=== PATIENT | female | born 1975 | race American Indian/Alaskan Native ===

== ENCOUNTER 2019-03-12 19:31 | Emergency (ER) | payer OTHER ==
[2019-03-12 20:21] VITALS: BP 141/76
--- NOTE | 2019-03-12 20:22 | Emergency Department Report ---
Chief Complaint: Abdominal Pain Stated Complaint: ABDOMINAL PAIN/ Time Seen by Provider: 03/12/19 20:17 - HPI History of Present Illness: This is a 43 y.o. F. that presents to the ER with abdominal pain and discharge. Positive home test yesterday. Denies vaginal bleeding, dysuria. Admits urinary frequency, urgency, and vaginal discharge. - Exam Vital Signs: Vital Signs 03/12/19 20:18 Temperature 98 F Pulse Rate 96 H Respiratory 18 Rate Blood Pressure 141/76 O2 Sat by Pulse 98 Oximetry MSE screening note: Focused history and physical exam performed. Due to findings the following was ordered: This initial assessment/diagnostic orders/clinical plan/treatment(s) is/are subject to change based on patient's health status, clinical progression and re-assessment by fellow clinical providers in the ED. Further treatment and workup at subsequent clinical providers discretion. Patient/guardians urged not to elope from the ED as their condition may be serious if not clinically assessed and managed. Initial orders include: 1- Patient sent to [facility] for further evaluation and treatment 2- labs, OB US ED Disposition for MSE Condition: Stable Instructions: Abdominal Pain (ED)
[2019-03-12 21:12] LABS: Basophils % (Auto) 0.4 % (0.0-1.8); Eosinophils # (Auto) 0.1 K/mm3 (0.0-0.4); Eosinophils % (Auto) 0.7 % (0.0-4.3); Hematocrit 35.3 % (30.3-42.9); Hemoglobin 11.4 gm/dl (10.1-14.3); Lymphocytes # (Auto) 2.6 K/mm3 (1.2-5.4); Lymphocytes % (Auto) 25.4 % (13.4-35.0); Mean Corpuscular HGB Conc 32 % (30-34); Mean Corpuscular Volume 78 fl (79-97); Monocytes # (Auto) 0.8 K/mm3 (0.0-0.8); Monocytes % (Auto) 7.6 % (0.0-7.3); Platelet Count 309 K/mm3 (140-440); Red Blood Count 4.52 M/mm3 (3.65-5.03); Red Cell Distribution Width 16.9 % (13.2-15.2)
[2019-03-12 21:25] LABS: Alanine Aminotransferase 30 units/L (7-56); Albumin 3.8 g/dL (3.9-5); BUN/Creatinine Ratio 17; Blood Urea Nitrogen 10 mg/dL (7-17); Calcium 9.8 mg/dL (8.4-10.2); Hemolysis Index 1
[2019-03-12 22:00] LABS: Bacteria,Urine 1+ /HPF (Negative); Bilirubin,Urine NEG (Negative); Blood,Urine SM (Negative); Color,Urine Yellow (Yellow); Mucus,Urine FEW /HPF; Protein,Urine <15 mg/dL mg/dL (Negative); Urobilinogen,Urine < 2.0 mg/dL (<2.0)
--- NOTE | 2019-03-13 00:37 | Ultrasound Report ---
PROCEDURE: US OB TRANSVAGINAL TECHNIQUE: Transvaginal imaging was obtained of the pelvis with Doppler interrogation of the uterus and adnexa. HISTORY: abdominal pain, COMPARISONS: None FINDINGS: The uterus is anteverted measuring 10.4 x 6.3 x 7.3 cm. Within the uterus is a well formed gestationa l sac which contains a yolk sac and pole. The pole length is 3.1 mm corresponding to a 5 week 6 day IUP. The heart rate is 119 bpm. There is no evidence of subchorionic hemorrhage. Sesar e fluid is not seen. Along the right wall of the uterus is a small fibroid measuring 1.5 cm in diamet er. The right ovary is normal size contour blood flow and echotexture measuring 2.5 x 1.6 x 2.2 cm. The left ovary is normal size contour blood flow and echotexture measuring 3.4 x 2.2 x 2.6 cm. IMPRESSION: Single viable IUP, 5 weeks 6 days. The heart rate is 119 BPM.. 1.5 cm fibroid in the right side of the uterus. Normal-appearing ovaries. This document is electronically signed by Ender Walker MD., Mar 13 2019 12:35:22 AM ET
--- NOTE | 2019-03-13 00:38 | Ultrasound Report ---
PROCEDURE: US OB <= 14 WEEKS FETUS TECHNIQUE: Transabdominal imaging was obtained of the pelvis. HISTORY: abdominal pain, COMPARISONS: None FINDINGS: The uterus is anteverted measuring 10.4 x 6.3 x 7.3 cm. Within the uterus is a well formed gestationa l sac which contains a pole and yolk sac. The crown-rump length is 3.1 mm corresponding to a 5 week 6 day . The heart rate is 119 BPM. There is no evidence of subchorionic hemorrhag e. Free fluid is not seen. The ovaries are appropriate in size contour blood flow and echotexture. The right ovary measures 2.5 x 1.6 x 2.2 cm. The left ovary measures 3.4 x 2.2 x 2.6 cm. IMPRESSION: Single viable IUP, 5 weeks 6 days. The heart rate is 119 BPM.. This document is electronically signed by Ender Walker MD., Mar 13 2019 12:36:43 AM ET
--- NOTE | 2019-03-13 01:18 | Emergency Department Report ---
ED Abdominal Pain HPI - General Chief Complaint: Abdominal Pain Stated Complaint: ABDOMINAL PAIN/ Time Seen by Provider: 03/12/19 20:17 Source: patient Mode of arrival: Ambulatory Limitations: No Limitations - History of Present Illness Initial Comments: pt is a 43 y/o aaf G1, P1, A0 who presents for urinary frequency and urgency x 4 days with mild abd cramping, pt denies fever or chills no intermittent n/v , pt states positive home tests. MD Complaint: abdominal pain Onset/Timin -: Gradual (-year-old male), days(s) (Impression third a lot better is m ultitrauma T is understandable) Location: suprapubic (5) Radiation: suprapubic Migration to: no migration Severity: moderate Severity scale (0 -10): 4 (name) Quality: cramping (metanephrine I Walker A) Consistency: constant (She Wanted Can Now), intermittent Improves With: nothing Worsens With: other (Gen. for 2 more days) Associated Symptoms: nausea, vomiting (name), dysuria ( W,) Treatments Prior to Arrival: NSAIDs - Related Data LMP Date: 01/21/19 Previous Rx's Medication Instructions Recorded Last Taken Type Acetaminophen [Acetaminophen TAB] 650 mg PO Q6HR PRN #30 tablet 03/13/19 Unknown Rx Nitrofurantoin [place]/M-Cryst 100 mg PO BID 7 Days #14 capsule 03/13/19 Unknown Rx [Macrobid CAP] Ondansetron [Zofran Odt] 4 mg PO Q8HR PRN #12 tab.rapdis 03/13/19 Unknown Rx Allergies Allergy/AdvReac Type Severity Reaction Status Date / Time No Known Allergies Allergy Verified 03/12/19 19:39 ED Review of Systems ROS: Stated complaint: ABDOMINAL PAIN/ Other details as noted in HPI Constitutional: denies: chills, fever Eyes: denies: eye pain, eye discharge, vision change ENT: denies: ear pain, throat pain Respiratory: denies: cough, shortness of breath, wheezing Cardiovascular: denies: chest pain, palpitations Endocrine: no symptoms reported Gastrointestinal: abdominal pain (cramping the lateralWAS ON ambulatory.). denies: nausea, vomiting (mass is), diarrhea Genitourinary: urgency, dysuria, frequency. denies: hematuria, discharge, dyspareunia Musculoskeletal: denies: back pain, joint swelling, arthralgia Skin: denies: rash, lesions Neurological: as per HPI. denies: headache, weakness, paresthesias Psychiatric: denies: anxiety, depression Hematological/Lymphatic: as per HPI (visual). denies: easy bleeding, easy bruising ED Past Medical Hx - Past Medical History Previous Medical History?: Yes Hx Asthma: Yes - Surgical History Past Surgical History?: No Additional Surgical History: sx R hand. sx R elbow - Social History Smoking Status: Never Smoker Substance Use Type: None - Medications Home Medications: Home Medications Medication Instructions Recorded Confirmed Last Taken Type Acetaminophen [Acetaminophen TAB] 650 mg PO Q6HR PRN #30 tablet 03/13/19 Unknown Rx Nitrofurantoin [place]/M-Cryst 100 mg PO BID 7 Days #14 capsule 03/13/19 Unknown Rx [Macrobid CAP] Ondansetron [Zofran Odt] 4 mg PO Q8HR PRN #12 tab.rapdis 03/13/19 Unknown Rx ED Physical Exam - General Limitations: No Limitations General appearance: alert, in no apparent distress - Head Head exam: Present: atraumatic, normocephalic - Eye Eye exam: Present: normal appearance, PERRL, EOMI - ENT ENT exam: Present: mucous membranes moist - Neck Neck exam: Present: normal inspection, full ROM (we are regular in the). Absent: tenderness - Respiratory Respiratory exam: Present: normal lung sounds bilaterally. Absent: respiratory distress, wheezes, stridor, chest wall tenderness - Cardiovascular Cardiovascular Exam: Present: regular rate, normal rhythm, normal heart sounds (8). Absent: systolic murmur, diastolic murmur, rubs, gallop - GI/Abdominal GI/Abdominal exam: Present: soft ( his oral fluids and off on the same endocrine he got to go. Call floor she check K and I around with will resume last Thersa a running for when necessary has ear is is is, however this), distended, t enderness, guarding, rebound, rigid, normal bowel sounds. Absent: bruit, hernia - Rectal Rectal exam: Present: deferred - External exam: Present: other (exam deferred by patient ) - Extremities Exam Extremities exam: Present: normal inspection - Back Exam Back exam: Present: normal inspection, full ROM. Absent: tenderness, CVA tenderness (R), CVA tenderness (L), muscle spasm, paraspinal tenderness, vertebral tenderness, rash noted - Neurological Exam Neurological exam: Present: alert, oriented X3, CN II-XII intact, normal gait, reflexes normal - Psychiatric Psychiatric exam: Present: normal affect, normal mood - Skin Skin exam: Present: warm, dry, intact, normal color. Absent: rash ED Course Vital Signs 03/12/19 03/12/19 19:40 20:18 Temperature 98.0 F 98 F Pulse Rate 93 H 96 H Respiratory 18 18 Rate Blood Pressure 141/76 141/76 O2 Sat by Pulse 98 98 Oximetry ED Medical Decision Making - Lab Data Result diagrams: 03/12/19 20:47 03/12/19 20:47 Labs 03/12/19 03/12/19 03/12/19 20:26 20:47 20:47 WBC 10.1 RBC 4.52 Hgb 11.4 Hct 35.3 MCV 78 L MCH 25 L MCHC 32 RDW 16.9 H Plt Count 309 Lymph % (Auto) 25.4 [place] % (Auto) 7.6 H Eos % (Auto) 0.7 Baso % (Auto) 0.4 Lymph # 2.6 [place] # 0.8 Eos # 0.1 Baso # 0.0 Seg Neutrophils % 65.9 Seg Neutrophils # 6.6 Sodium 135 L Potassium 4.1 Chloride 100.3 Carbon Dioxide 24 Anion Gap 15 BUN 10 Creatinine 0.6 L Estimated GFR > 60 BUN/Creatinine Ratio 17 Glucose 134 H Calcium 9.8 Total Bilirubin 0.30 AST 21 ALT 30 Alkaline Phosphatase 86 Total Protein 7.5 Albumin 3.8 L Albumin/Globulin Ratio 1.0 HCG, Qual HCG, Quant Urine Color Yellow Urine Turbidity Slightly-cloudy Urine pH 5.0 Ur Specific [place] 1.018 Urine Protein <15 mg/dl Urine Glucose (UA) Neg Urine Ketones Neg Urine Blood Sm Urine Nitrite Neg Urine Bilirubin Neg Urine Urobilinogen < 2.0 Ur Leukocyte Esterase Neg Urine WBC (Auto) 2.0 Urine RBC (Auto) 1.0 U Epithel Cells (Auto) 3.0 Urine Bacteria (Auto) 1+ Urine Mucus Few 03/12/19 03/12/19 20:47 20:47 WBC RBC Hgb Hct MCV MCH MCHC RDW Plt Count Lymph % (Auto) [place] % (Auto) Eos % (Auto) Baso % (Auto) Lymph # [place] # Eos # Baso # Seg Neutrophils % Seg Neutrophils # Sodium Potassium Chloride Carbon Dioxide Anion Gap BUN Creatinine Estimated GFR BUN/Creatinine Ratio Glucose Calcium Total Bilirubin AST ALT Alkaline Phosphatase Total Protein Albumin Albumin/Globulin Ratio HCG, Qual Positive HCG, Quant 34925 H Urine Color Urine Turbidity Urine pH Ur Specific [place] Urine Protein Urine Glucose (UA) Urine Ketones Urine Blood Urine Nitrite Urine Bilirubin Urine Urobilinogen Ur Leukocyte Esterase Urine WBC (Auto) Urine RBC (Auto) U Epithel Cells (Auto) Urine Bacteria (Auto) Urine Mucus - Radiology Data Radiology results: report reviewed, image reviewed PROCEDURE: US OB TRANSVAGINAL TECHNIQUE: Transvaginal imaging was obtained of the pelvis with Doppler interrogation of the uterus and adnexa. HISTORY: abdominal pain, COMPARISONS: None FINDINGS: The uterus is anteverted measuring 10.4 x 6.3 x 7.3 cm. Within the uterus is a well formed gestational sac which contains a yolk sac and pole. The pole length is 3.1 mm corresponding to a 5 week 6 day IUP. The heart rate is 119 bpm. There is no evidence of subchorionic hemorrhage. Free fluid is not seen. Along the right wall of the uterus is a small fibroid measuring 1.5 cm in diameter. The right ovary is normal size contour blood flow and echotexture measuring 2.5 x 1.6 x 2.2 cm. The left ovary is normal size contour blood flow and echotexture measuring 3.4 x 2.2 x 2.6 cm. IMPRESSION: Single viable IUP, 5 weeks 6 days. The heart rate is 119 BPM.. 1.5 cm fibroid in the right side of the uterus. Normal-appearing ovaries. This document is electronically signed by Ender Walker MD., Mar 13 2019 12:35: 22 AM ET Transcribed By: RB Dictated By: ENDER WALKER MD Electronically Authenticated By: ENDER WALKER MD Signed Date/Time: 03/13/19 0037 DD/ 51 TD/TT: 03/12/19 919 PROCEDURE: US OB TRANSVAGINAL TECHNIQUE: Transvaginal imaging was obtained of the pelvis with Doppler interrogation of the uterus and adnexa. HISTORY: abdominal pain, COMPARISONS: None FINDINGS: The uterus is anteverted measuring 10.4 x 6.3 x 7.3 cm. Within the uterus is a well formed gestational sac which contains a yolk sac and pole. The pole length is 3.1 mm corresponding to a 5 week 6 day IUP. The heart rate is 119 bpm. There is no evidence of subchorionic hemorrhage. Free fluid is not seen. Along the right wall of the uterus is a small fibroid measuring 1.5 cm in diameter. The right ovary is normal size contour blood flow and echotexture measuring 2.5 x 1.6 x 2.2 cm. The left ovary is normal size contour blood flow and echotexture measuring 3.4 x 2.2 x 2.6 cm. IMPRESSION: Single viable IUP, 5 weeks 6 days. The heart rate is 119 BPM.. 1.5 cm fibroid in the right side of the uterus. Normal-appearing ovaries. This document is electronically signed by Ender Walker MD., Mar 13 2019 12:35:22 AM ET Transcribed By: RB Dictated By: ENDER WALKER MD Electronically Authenticated By: ENDER WALKER MD Signed Date/Time: 03/13/19 0037 DD/ 51 TD/TT: 03/12/19 235 - Medical Decision Making US OB: Single IUP 5 weeks and 6 days heart rate is 119 bpm, ua: normal however pt complaint for urinary frequency urgency and dysuria , there is no vaginal bleeding,will tx for dysuria with macrobid, zofran, tylenol, follow with obgyn in 1-2 days, pt and verbalized agreement and understanding of same. Critical care attestation.: If time is entered above; I have spent that time in minutes in the direct care of this critically ill patient, excluding procedure time. ED Disposition Clinical Impression: Dysuria Qualifiers: Weeks of gestation: less than 8 weeks Qualified Code(s): Z3A.01 - Less than 8 weeks gestation of Disposition: DC-01 TO HOME OR SELFCARE Is pt being admited?: No Does the pt Need Aspirin: No Condition: Stable Instructions: Abdominal Pain (ED), Dysuria (ED) Prescriptions: Acetaminophen [Acetaminophen TAB] 650 mg PO Q6HR PRN #30 tablet PRN Reason: Pain Nitrofurantoin [place]/M-Cryst [Macrobid CAP] 100 mg PO BID 7 Days #14 capsule Ondansetron [Zofran Odt] 4 mg PO Q8HR PRN #12 tab.rapdis PRN Reason: Nausea And Vomiting Referrals: DAVID PEÑA MD [Staff Physician] - 3-5 Days Forms: Work/School Release Form(ED) Time of Disposition: 01:35
== END 2019-03-13 01:45 | disposition home or self-care (01) ==
LOC: ED 19:31
DX: O23.41 Unspecified infection of urinary tract in pregnancy, first trimester (principal); R30.0 Dysuria; O99.511 Diseases of the respiratory system complicating pregnancy, first trimester; J45.909 Unspecified asthma, uncomplicated; Z3A.01 Less than 8 weeks gestation of pregnancy
CPT/HCPCS: 36415; 76801; 76817; 80053; 81001; 84702; 84703; 85025; 99284

== ENCOUNTER 2019-08-17 09:14 | Outpatient (CLI) | payer OTHER, MEDICAID ==
[2019-08-17 09:34] VITALS: BP 124/68
[2019-08-17 10:44] LABS: Bacteria,Urine 1+ /HPF (Negative); Bilirubin,Urine NEG (Negative); Blood,Urine NEG (Negative); Color,Urine Yellow (Yellow); Mucus,Urine FEW /HPF; Protein,Urine <15 mg/dL mg/dL (Negative); Urobilinogen,Urine < 2.0 mg/dL (<2.0)
[2019-08-17] MEDS ORDERED: LACTATED RINGERS 500 ML IV ONE (11:07)
[2019-08-17] MEDS ORDERED: ACETAMINOPHEN 325 MG TAB PO ONE (11:09)
[2019-08-17 14:06] LABS: Hematocrit 31.4 % (30.3-42.9); Hemoglobin 9.9 gm/dl (10.1-14.3); Mean Corpuscular HGB Conc 32 % (30-34); Mean Corpuscular Volume 81 fl (79-97); Platelet Count 197 K/mm3 (140-440); Red Blood Count 3.86 M/mm3 (3.65-5.03); Red Cell Distribution Width 19.4 % (13.2-15.2)
[2019-08-17] MEDS ORDERED: LACTATED RINGERS 1,000 ML IV ONE (14:34)
== END 2019-08-17 14:35 | disposition home or self-care (01) ==
LOC: TRG 09:14 → MERGE 09:14 → TRG 09:18
PROVIDERS: ATTEND Obstetrics & Gynecology
DX: O26.893 Other specified pregnancy related conditions, third trimester (principal); R10.9 Unspecified abdominal pain; R51 Headache; M54.9 Dorsalgia, unspecified; Z3A.29 29 weeks gestation of pregnancy
CPT/HCPCS: 36415; 59025; 81001; 82962; 85027; 96360; J7120

== ENCOUNTER 2019-09-20 12:39 | Outpatient (CLI) | payer OTHER, MEDICAID ==
[2019-09-20] MEDS ORDERED: LACTATED RINGERS 500 ML IV ONE (13:19)
[2019-09-20 13:22] VITALS: BP 114/65
[2019-09-20 13:49] LABS: Bacteria,Urine 2+ /HPF (Negative); Bilirubin,Urine NEG (Negative); Blood,Urine NEG (Negative); Color,Urine Yellow (Yellow); Mucus,Urine 2+ /HPF; Urobilinogen,Urine < 2.0 mg/dL (<2.0)
== END 2019-09-20 15:55 | disposition home or self-care (01) ==
LOC: TRG 12:39
PROVIDERS: ATTEND Obstetrics & Gynecology
DX: O47.03 False labor before 37 completed weeks of gestation, third trimester (principal); Z3A.34 34 weeks gestation of pregnancy
CPT/HCPCS: 59025; 81001

== ENCOUNTER 2019-09-28 01:45 | Outpatient (CLI) | payer OTHER, MEDICAID ==
[2019-09-28 04:16] LABS: Bacteria,Urine 1+ /HPF (Negative); Bilirubin,Urine NEG (Negative); Blood,Urine NEG (Negative); Color,Urine Straw (Yellow); Protein,Urine <15 mg/dL mg/dL (Negative); RBC,Urine < 1.0 /HPF (0.0-6.0); Urobilinogen,Urine < 2.0 mg/dL (<2.0); WBC,Urine < 1.0 /HPF (0.0-6.0)
--- NOTE | 2019-09-28 04:34 | Ultrasound Report ---
Limited OB ultrasound for biophysical profile FINDINGS: breathing, movement and posture/tone all score 2/2. Amniotic fluid index is 13.5 cm a lso with a score of 2 for a total profile of 8/8. Signer Name: Sabas Faith MD Signed: 09/28/2019 4:29 AM Workstation Name: [id number]
== END 2019-09-28 04:31 | disposition home or self-care (01) ==
LOC: TRG 01:45
PROVIDERS: ATTEND Obstetrics & Gynecology
DX: O36.8130 Decreased fetal movements, third trimester, not applicable or unspecified (principal); O09.513 Supervision of elderly primigravida, third trimester; Z3A.36 36 weeks gestation of pregnancy
CPT/HCPCS: 59025; 76819; 81001

== ENCOUNTER 2019-10-03 21:57 | Observation (INO) | payer OTHER, MEDICAID ==
[2019-10-03] MEDS ORDERED: LACTATED RINGERS 500 ML IV ONE (22:05)
[2019-10-03] MEDS ORDERED: ACETAMINOPHEN 500 MG TAB PO PRN (22:57)
[2019-10-03] MEDS ORDERED: ZOLPIDEM 5 MG TAB PO PRN (22:58)
[2019-10-04 00:08] LABS: Bilirubin,Urine NEG (Negative); Blood,Urine NEG (Negative); Color,Urine Amber (Yellow); Mucus,Urine 3+ /HPF
[2019-10-04 00:15] LABS: Amphetamine Screen,Urine PRESUMPTIVE NEGATIVE; Benzodiazepines Screen,Urine PRESUMPTIVE NEGATIVE; Cannabinoid Screen,Urine PRESUMPTIVE NEGATIVE; Cocaine Screen,Urine PRESUMPTIVE NEGATIVE; Methadone Screen,Urine PRESUMPTIVE NEGATIVE; Opiate Screen,Urine PRESUMPTIVE NEGATIVE
[2019-10-04] MEDS ORDERED: LACTATED RINGERS 1,000 ML ONE (04:51)
--- NOTE | 2019-10-04 07:40 | History and Physical Report ---
History of Present Illness Date of examination: 10/04/19 Date of admission: 10/03/19 22:05 Chief complaint: Admitted overnite with contractions. History of previous delivery. History of present illness: Admitted overnite with contractions. History of previous delivery. . QUE 11/01/2019. Diet controlled gest diabetes. Past History Past Surgical History: section - Obstetrical History Expected Date of Delivery: 11/01/19 Actual Gestation: 36 Week(s) 0 Day(s) : 2 Para: 1 Medications and Allergies Allergies Allergy/AdvReac Type Severity Reaction Status Date / Time No Known Allergies Allergy Verified 09/28/19 02:14 Home Medications Medication Instructions Recorded Confirmed Last Taken Type Vit-Fe Fumar-FA [ 1 tab PO QDAY 10/04/19 10/04/19 Unknown History Vitamin] Active Meds: Active Medications Acetaminophen (Tylenol) 500 mg PO Q6H PRN PRN Reason: Pain, Mild (1-3) Last Admin: 10/04/19 00:30 Dose: 500 mg Documented by: Zolpidem Tartrate (Ambien) 5 mg PO QHS PRN PRN Reason: Sleep Review of Systems All systems: negative - Vital Signs Vital signs: Vital Signs Pulse BP 90 111/55 10/03/19 22:17 10/03/19 22:17 Temp Pulse Resp BP Pulse Ox 98 F 87 18 118/68 98 10/04/19 03:40 10/04/19 03:37 10/03/19 23:53 10/04/19 03:37 10/03/19 23:03 - Physical Exam Lungs: Positive: Normal air movement Abdomen: Positive: normal appearance, soft. Negative: tenderness, guarding - Obstetrical FHR: category 1 Uterine Contraction Monitor Mode: External Uterine Contraction Pattern: Irregular Results All other labs normal. Assessment and Plan - Patient Problems (1) with 36 completed weeks gestation Current Visit: Yes Status: Acute (2) Previous delivery affecting , antepartum Current Visit: Yes Status: Acute Plan to address problem: Patient is under observation for labor. In-house management made necessary due to history of prior .
[2019-10-04] MEDS ORDERED: fentaNYL 100 MCG/2 ML INJ IV NR (09:00)
[2019-10-04 09:32] VITALS: BP 102/58
[2019-10-04] MEDS ORDERED: ACETAMINOPHEN 500 MG TAB PO ONE (10:30)
--- NOTE | 2019-10-04 10:44 | Progress Note ---
Assessment and Plan - Patient Problems (1) with 36 completed weeks gestation Current Visit: Yes Status: Acute Plan to address problem: Irregular contractions and some uterine irritability present. Patient reports they are tolerable for now compared to yesterday on admission. No cervical changes since admission Abdomen soft on palpation Discharge patient to home PTL precautions given Follow up at [facility] on 10/07/19 or [facility] as needed if symptoms persist or worsen (2) Previous delivery affecting , antepartum Current Visit: Yes Status: Acute (3) Headache Current Visit: Yes Status: Acute Qualifiers: Headache chronicity pattern: episodic headache Plan to address problem: BPs within normal limits Tylenol 1000mg PO x1 given Encouraged rest and hydration Subjective - Subjective Date of service: 10/04/19 Principal diagnosis: IUP @ 36w0d, R/O Labor Interval history: see H&P Patient reports: movement normal, contractions (present but mild), other (c/o headache, pain level 7-8/10. Denies visual disturbances or RUQ pain), no loss of fluid, no vaginal bleeding Objective - Vital Signs Vital Signs: Vital Signs - 12hr 10/03/19 10/03/19 10/03/19 22:43 22:48 22:53 Temperature Pulse Rate 93 H 93 H 104 H Respiratory Rate Blood Pressure Blood Pressure [Right] O2 Sat by Pulse 98 100 97 Oximetry 10/03/19 10/03/19 10/03/19 22:58 23:03 23:53 Temperature 98 F Pulse Rate 90 88 82 Respiratory 18 Rate Blood Pressure Blood Pressure 119/71 [Right] O2 Sat by Pulse 97 98 Oximetry 10/04/19 10/04/19 10/04/19 03:37 03:40 07:42 Temperature 98 F 98.2 F Pulse Rate 87 93 H Respiratory 18 Rate Blood Pressure 118/68 102/56 Blood Pressure 102/58 [Right] O2 Sat by Pulse Oximetry - Exam Abdomen: Present: normal appearance, soft. Absent: distention, tenderness, guarding FHR: auscultation normal, category 1 Uterine Contraction Monitor Mode: External Cervical Dilatation: 0 Cervical Effacement Percentage: 0 station: -4 Uterine Contraction Pattern: Irregular - Labs Labs: Laboratory Results - last 24 hr 10/03/19 10/03/19 10/03/19 23:21 23:37 23:37 POC Glucose Urine Color [place] Urine Turbidity Clear Urine pH 5.0 Ur Specific [place] 1.030 Urine Protein 30 mg/dl Urine Glucose (UA) Neg Urine Ketones 20 Urine Blood Neg Urine Nitrite Neg Urine Bilirubin Neg Urine Urobilinogen 2.0 Ur Leukocyte Esterase Neg Urine WBC (Auto) 2.0 Urine RBC (Auto) 3.0 U Epithel Cells (Auto) 1.0 Urine Mucus 3+ Urine Opiates Screen Presumptive negative Urine Methadone Screen Presumptive negative Ur Barbiturates Screen Presumptive negative Ur Phencyclidine Scrn Presumptive negative Ur Amphetamines Screen Presumptive negative U Benzodiazepines Scrn Presumptive negative Urine Cocaine Screen Presumptive negative U Marijuana (THC) Screen Presumptive negative Drugs of Abuse Note Disclamer Blood Type O POSITIVE Antibody Screen Negative 10/04/19 08:43 POC Glucose 77 Urine Color Urine Turbidity Urine pH Ur Specific [place] Urine Protein Urine Glucose (UA) Urine Ketones Urine Blood Urine Nitrite Urine Bilirubin Urine Urobilinogen Ur Leukocyte Esterase Urine WBC (Auto) Urine RBC (Auto) U Epithel Cells (Auto) Urine Mucus Urine Opiates Screen Urine Methadone Screen Ur Barbiturates Screen Ur Phencyclidine Scrn Ur Amphetamines Screen U Benzodiazepines Scrn Urine Cocaine Screen U Marijuana (THC) Screen Drugs of Abuse Note Blood Type Antibody Screen
--- NOTE | 2019-10-04 10:58 | Discharge Summary ---
Providers - Providers Date of Admission: 10/03/19 22:05 Date of discharge: 10/04/19 Attending physician: ALEC REYNOSO MD Primary care physician: ALEC REYNOSO MD Hospitalization Reason for admission: labor, IUP at term Discharge diagnosis: other (IUP @ term undelivered) Hospital course: Uncomplicated Condition at discharge: Stable Disposition: DC-01 TO HOME OR SELFCARE - Discharge Diagnoses (1) with 36 completed weeks gestation Status: Acute (2) Previous delivery affecting , antepartum Status: Acute (3) Headache Status: Acute Qualifiers: Headache chronicity pattern: episodic headache Comment: improving with Tylenol Plan - Provider Discharge Summary Activity: routine Diet: routine Additional instructions: [] Smoking cessation referral if applicable(refer to patient education folder for contact #) [] Refer to [facility]'s [facility] Booklet Call your doctor immediately for: * Fever > 100.5 * Heavy vaginal bleeding ( >1 pad per hour) * Severe persistent headache * Shortness of breath * Reddened, hot, painful area to leg or breast * Drainage or odor from incision. * Keep incision clean and dry at all times and follow doctor's instructions regarding bathing/showering - Follow up plan Follow up: ALEC REYNOSO MD [Primary Care Provider] - 10/07/19 (Follow-up at [facility] on 10/07/19 or [facility] as needed if symptoms persist or worsen.)
== END 2019-10-04 10:55 | disposition home or self-care (01) ==
LOC: TRG 21:57 → LD 22:05 → TRG 22:05
PROVIDERS: ADMIT Obstetrics & Gynecology; ATTEND Obstetrics & Gynecology
DX: O62.9 Abnormality of forces of labor, unspecified (principal); O24.410 Gestational diabetes mellitus in pregnancy, diet controlled; O26.893 Other specified pregnancy related conditions, third trimester; R51 Headache; Z3A.36 36 weeks gestation of pregnancy; Z98.891 History of uterine scar from previous surgery
CPT/HCPCS: 59025; 80307; 81001; 82962; 86850; 86900; 86901; G0378; J7120

== ENCOUNTER 2019-10-12 12:55 | Outpatient (CLI) | payer OTHER, MEDICAID ==
[2019-10-12] MEDS ORDERED: LACTATED RINGERS 1,000 ML IV ONE (15:15)
[2019-10-12 17:17] LABS: Bacteria,Urine 1+ /HPF (Negative); Bilirubin,Urine NEG (Negative); Blood,Urine NEG (Negative); Color,Urine Yellow (Yellow); Mucus,Urine 1+ /HPF
[2019-10-12 17:22] LABS: Amphetamine Screen,Urine PRESUMPTIVE NEGATIVE; Benzodiazepines Screen,Urine PRESUMPTIVE NEGATIVE; Cannabinoid Screen,Urine PRESUMPTIVE NEGATIVE; Cocaine Screen,Urine PRESUMPTIVE NEGATIVE; Methadone Screen,Urine PRESUMPTIVE NEGATIVE; Opiate Screen,Urine PRESUMPTIVE NEGATIVE
[2019-10-12 17:56] LABS: Basophils % (Auto) 0.4 % (0.0-1.8); Eosinophils # (Auto) 0.1 K/mm3 (0.0-0.4); Eosinophils % (Auto) 0.8 % (0.0-4.3); Hematocrit 32.9 % (30.3-42.9); Hemoglobin 10.4 gm/dl (10.1-14.3); Lymphocytes % (Auto) 22.4 % (13.4-35.0); Mean Corpuscular HGB Conc 32 % (30-34); Mean Corpuscular Volume 76 fl (79-97); Monocytes # (Auto) 0.5 K/mm3 (0.0-0.8); Monocytes % (Auto) 5.5 % (0.0-7.3); Platelet Count 169 K/mm3 (140-440); Red Blood Count 4.34 M/mm3 (3.65-5.03); Red Cell Distribution Width 18.9 % (13.2-15.2)
--- NOTE | 2019-10-12 18:04 | Ultrasound Report ---
Limited obstetrical ultrasound INDICATION: COMPARISON: Biophysical profile 09/28/2019 FINDINGS: Limited study was performed primarily to evaluate the placenta. Intrauterine is s een. Fetus is in a cephalic position. cardiac activity was documented at 165 bpm. The placenta is anterior and free of the internal cervical os. No evidence of abruption is seen. Amniotic fluid in dex is within normal limits at 13.4 cm. anatomical survey was not performed. BIOPHYSICAL PROFILE breathing movements: 2/2 movements: 2/2 posture and tone tone: 2/2 Qualitative amniotic fluid volume: 2/2 Total score: 8/8, within normal limits Signer Name: Doyle Parham MD Signed: 10/12/2019 6:00 PM Workstation Name: [employer]
[2019-10-12 18:14] LABS: Alanine Aminotransferase 142 units/L (7-56); Albumin 3.1 g/dL (3.9-5); BUN/Creatinine Ratio 18; Blood Urea Nitrogen 9 mg/dL (7-17); Calcium 9.3 mg/dL (8.4-10.2); Hemolysis Index 6
[2019-10-12 19:18] VITALS: BP 121/63
--- NOTE | 2019-10-12 20:08 | Event Note ---
Date: 10/12/19 Triage note 10/12/19: Patient is 37 weeks, 1 day gestation, presented to triage with complaint of nausea and vomiting for past 2 days, accompanied by abdominal discomfort and mild headache. She reports no diarrhea. She denies vaginal bleeding, leaking of fluid, or regular contractions. She reports good movement. She states she is scheduled to have a repeat section at 39 weeks gestation. She denies any pain on scar. She denies any falls or abdominal trauma. She denies urinary frequency or urgency or dysuria. Patient states she has not been around anyone who has similar symptoms. No respiratory symptoms but states she had a cold about 2 weeks ago. Patient has category 1 heart rate tracing and rare mild contractions. BPP is 8/8 and ERIN is 13.4 cm. Cervix is closed, thick, and posterior and fetus is in cephalic presentation. No signs of abruption noted on US. Abdomen is soft and nontender without guarding or rigidity. No vaginal discharge or bleeding or leaking of fluid seen. Flu swab negative, platelet count normal. BPs are normal and patient is afebrile. UA unremarkable. AST, ALT, and alk. phos. elevated. When questioned, patient states she no longer has a gallbladder (had it removed) and that she had hepatitis B diagnosed 20 years ago. Patient denies any itching or rashes or jaundice. She denies excessive fatigue or any severe abdominal pain. Patient was hydrated with Lactated Ringers solution here in triage. Consulted with Dr. Rao re: patient and informed him of patient's history, complaints, lab results (including elevated AST, ALT, and alk. phos.), EFM tracing, and BPP. Dr. Rao states that he does not think patient's complaints and lab results are related to her but thinks they are related to her diagnosis of hepatitis. Dr. Rao states to discharge patient from L&D and sent her to emergency department to be further evaluated for nausea/vomiting and elevated LFTs. Dr. Rao states to have patient follow up with him this week at [facility]. Discussed all of the above with patient. Patient states she has a follow up visit with Dr. Rao at [facility] in 3 days and plans to keep this appointment. Informed patient's nurse to take patient to the ED per Dr. Rao's order.
== END 2019-10-12 20:00 | disposition swing bed (61) ==
LOC: TRG 12:55
PROVIDERS: ATTEND Obstetrics & Gynecology
DX: O47.1 False labor at or after 37 completed weeks of gestation (principal); Z3A.37 37 weeks gestation of pregnancy
CPT/HCPCS: 36415; 59025; 76815; 76819; 80053; 80307; 81001; 82962; 85025; 87400